=== PATIENT | male | born 1975 | race Caucasian/White ===

== ENCOUNTER 2017-09-10 18:11 | Emergency (ER) | payer OTHER ==
[~2017-09-10] VITALS: Ht 188 cm; Wt 95.5 kg
[~2017-09-10 18:11] MED LIST: ACYCLOVIR400 MG; CIPRO500 MG PO; CIPROFLOXACIN250 MG PO; CYCLOBENZAPRINE10 MG PO; FLOMAX0.4 MG PO; HYDROMORPHONE HC2 MG PO; IBUPROFEN600 MG; IBUPROFEN600 MG PO; IBUPROFEN800 MG PO; METHOCARBAMOL500 MG PO; NAPROXEN500 MG PO; NORCO 5-325 TA1 EACH PO; TORSEMIDE10 MG PO; ZOFRAN ODT4 MG PO; ZOFRAN4 MG PO
== END 2017-09-10 21:27 | disposition home or self-care (01) ==
LOC: ED 18:11
DX: J11.1 Influenza due to unidentified influenza virus with other respiratory manifestations (principal); J02.9 Acute pharyngitis, unspecified; Z87.442 Personal history of urinary calculi; Z98.890 Other specified postprocedural states
CPT/HCPCS: 87502; 96360; 99283; J7120

== ENCOUNTER 2020-11-14 16:17 | Emergency (ER) | payer OTHER ==
[~2020-11-14] VITALS: Ht 188 cm; Wt 95.5 kg
== END 2020-11-14 20:34 | disposition home or self-care (01) ==
LOC: ED 16:17
DX: R41.82 Altered mental status, unspecified (principal)
CPT/HCPCS: 99284

== ENCOUNTER 2022-04-10 10:08 | Emergency (ER) | payer OTHER ==
[~2022-04-10] VITALS: Ht 188 cm; Wt 95.5 kg
[2022-04-10] MEDS ORDERED: PREDNISONE20 MG PO (11:00)
== END 2022-04-10 11:07 | disposition home or self-care (01) ==
LOC: ED 10:08
DX: G51.0 Bell's palsy (principal)
CPT/HCPCS: 99283

== ENCOUNTER 2024-05-10 16:23 | Emergency (ER) | payer OTHER ==
[~2024-05-10] VITALS: Ht 188 cm; Wt 93.9 kg
[~2024-05-10 16:23] MED LIST changes: +PREDNISONE20 MG PO
[2024-05-10] MEDS ORDERED: CYCLOBENZAPRINE5 MG PO (16:50)
[2024-05-10] MEDS ORDERED: CEFDINIR300 MG PO (16:51)
[2024-05-10] MEDS ORDERED: MORPHINE SULFATE 4 MG/ML VIAL IV ONE (19:30)
[2024-05-10] MEDS ORDERED: ondansetron HCL 4 MG/2 ML VIAL IV ONE (19:30)
[2024-05-10 20:31] LABS: BASOPHILS 0.9 % (0-2); EOSINOPHILS 4.4 % (0-6); HEMATOCRIT 36.4 % (35.0-50.0); HEMOGLOBIN 12.5 g/dL (12.0-18.0); LYMPHOCYTES 25.7 % (24-44); MCH 30.1 (27-36); MCHC 34.3 g/dl (30-36); MCV 87.6 fl (81-99); PLATELET COUNT 372 K/uL (140-440); RBC 4.16 M/ul (4.3-5.7); RDW 13.1 (10.5-15.0)
[2024-05-10 20:41] LABS: ALBUMIN 3.1 g/dL (3.4-5.0); ALBUMIN/GLOBULIN RATIO 0.82 (1.1-2.4); ANION GAP 8.9 (7-21); BILIRUBIN, TOTAL 0.3 ng/dL (0.2-1.0); BUN/CREATININE RATIO 9.63 (6.0-28.6); CREATININE, SERUM 0.83 mg/dL (0.70-1.30); MAGNESIUM 1.7 mg/dL (1.8-2.4); POTASSIUM 3.9 mmol/L (3.5-5.1); PROTEIN, TOTAL 6.9 g/dL (6.4-8.2)
[2024-05-10] MEDS ORDERED: ACETAMINOPHEN/CAFFEINE/BUTALB 1 TAB TABLET PO ONE (21:30)
[2024-05-10] MEDS ORDERED: LEVOFLOXACIN500 MG PO (21:37)
[2024-05-10] MEDS ORDERED: BUTALB-ACETAMI1 EAC2 PO (21:39)
[2024-05-10] MEDS ORDERED: methylPREDNISolone 4 MG HOME.PACK PO ONE (21:45)
[2024-05-10 21:52] VITALS: BP 141/103
== END 2024-05-10 22:11 | disposition home or self-care (01) ==
LOC: ED 16:23
PROVIDERS: Family Medicine
DX: J32.8 Other chronic sinusitis (principal); Z79.899 Other long term (current) drug therapy
CPT/HCPCS: 36415; 70450; 70496; 70498; 71045; 80053; 83735; 84484; 85025; 96375; 99284-25; A9270; J2270; J2405; Q9967

== ENCOUNTER 2024-07-18 07:10 | Day surgery (SDC) | payer OTHER ==
[2024-07-13 10:22] VITALS: BP 145/94
[~2024-07-18] VITALS: Ht 188 cm; Wt 90.9 kg
[~2024-07-18 07:10] MED LIST changes: +ADVIL200 MG PO; +AMOXICILLIN500 MG PO; +ASPIRIN EC325 MG PO; +BUTALB-ACETAMI1 EAC2 PO; +CEFAZOLIN SODIUM 2 GM/20 ML SYR IV SCH; +CEFDINIR300 MG PO; +CYCLOBENZAPRINE5 MG PO; +HYDROCODON-ACE1 EA11 PO; +IBLOOD GLUCOSE TEST STRIP 1 EA TEST VI PRN; +LACTATED RINGER'S 1,000 ML IV SCH; +LEVOFLOXACIN500 MG PO; +LIDOCAINE HCL 1% 5 ML SDV INJ ONE; +TYLENOL EXTRA500 MG PO
[2024-07-18 07:20] VITALS: BP 148/92
[2024-07-18] MEDS ORDERED: SLEEP AID25 MG PO (07:23)
[2024-07-18] MEDS ORDERED: LIDOCAINE 1% W/ EPI 1:100,000 20 ML MDV ONE (07:28)
[2024-07-18] MEDS ORDERED: DEXAMETHASONE SOD PHOS 4 MG/ML VIAL ONE (07:39)
[2024-07-18] MEDS ORDERED: SUCCINYLCHOLINE IN 0.9% NACL 200 MG/10 ML SYRINGE ONE (07:39)
[2024-07-18] MEDS ORDERED: LACTATED RINGER'S 1,000 ML IV ONE (07:39)
[2024-07-18] MEDS ORDERED: SUGAMMADEX SODIUM 200 MG/2 ML ML ONE (07:39)
[2024-07-18] MEDS ORDERED: propofoL 200 MG/20 ML VIAL ONE (07:39)
[2024-07-18] MEDS ORDERED: ondansetron HCL 4 MG/2 ML VIAL ONE (07:39)
[2024-07-18] MEDS ORDERED: KETOROLAC TROMETHAMINE 30 MG/ML VIAL ONE (07:39)
[2024-07-18] MEDS ORDERED: METOCLOPRAMIDE HCL 10 MG/2 ML SDV ONE (07:39)
[2024-07-18] MEDS ORDERED: LIDOCAINE HCL 4% 5 ML AMP ONE (07:39)
[2024-07-18] MEDS ORDERED: fentaNYL citrate 100 MCG/2 ML VIAL ONE (07:39)
[2024-07-18] MEDS ORDERED: MIDAZOLAM HCL 2 MG/2 ML VIAL ONE (07:39)
[2024-07-18] MEDS ORDERED: ROCURONIUM BROMIDE 50 MG/5 ML SYR ONE (07:39)
[2024-07-18] MEDS ORDERED: FAMOTIDINE 20 MG/ 2 ML VIAL ONE (07:39)
[2024-07-18] MEDS ORDERED: dexmedeTOMIDine HCl 200 MCG/2 ML VIAL ONE (07:40)
[2024-07-18] MEDS ORDERED: SUDAFED 12-HOU120 MG PO (07:44)
[2024-07-18] MEDS ORDERED: OXYMETAZOLINE HCL 30 ML BTL NAS SCH (08:00)
[2024-07-18] MEDS ORDERED: droPERidol 5 MG/2 ML VIAL IV PRN (08:45)
[2024-07-18] MEDS ORDERED: METOCLOPRAMIDE HCL 10 MG/2 ML SDV IV PRN (08:45)
[2024-07-18] MEDS ORDERED: ondansetron HCL 4 MG/2 ML VIAL IV PRN (08:45)
[2024-07-18] MEDS ORDERED: PROCHLORPERAZINE EDISYLATE 10 MG/2 ML VIAL IV PRN (08:45)
[2024-07-18] MEDS ORDERED: MORPHINE SULFATE 10 MG/ML VIAL IV PRN (08:45)
[2024-07-18] MEDS ORDERED: NALOXONE HCL 0.4 MG SYR IV PRN (08:45)
[2024-07-18] MEDS ORDERED: IBLOOD GLUCOSE TEST STRIP 1 EA TEST VI PRN (08:45)
[2024-07-18] MEDS ORDERED: fentaNYL citrate 50 MCG/ML SDV IV PRN (08:45)
[2024-07-18] MEDS ORDERED: SEVOFLURANE 250 ML BTL INH ONE (08:49)
[2024-07-18] MEDS ORDERED: SEVOFLURANE 250 ML BTL ONE (09:19)
[2024-07-18 10:08] VITALS: BP 134/81
[2024-07-18] MEDS ORDERED: ACETAMINOPHEN 1,000 MG/100 ML VIAL IV ONE (10:30)
[2024-07-18] MEDS ORDERED: HYDROCODONE/ACETA 5/325 TAB PO PRN (10:45)
[2024-07-18 11:02] VITALS: BP 133/86
--- NOTE | 2024-07-18 11:13 | OR ---
[facility] [address] [place], [place] [address] Signed DATE OF OPERATION: 07/18/2024 SURGEON: Santiago Wang MD PREOPERATIVE DIAGNOSIS: Right pansinusitis. POSTOPERATIVE DIAGNOSIS: Right pansinusitis. PROCEDURE: Right roca sinusotomies. ANESTHESIA: General, LMA; Bryson RUTLEDGE PREOP HISTORY: Lev is a 48-year-old man with a severe sinus infection for several months. This has been unresponsive to appropriate medications, antibiotics, and steroids. He has had CAT scans initially several months ago showing right pansinus opacification. This is a CT scan was repeated about a week ago showing continued persistent opacification of all right sinuses sparing the sphenoid. He is taken to the operating for the above-mentioned procedures. OPERATIVE PROCEDURE AND FINDINGS: After informed consent, the patient was taken to the operating room, placed in supine position, where general LMA anesthesia was induced. The patient and procedure were verified. The patient was repositioned. Preop CT was viewed throughout. The patient received preoperative intranasal oxymetazoline, intravenous Ancef. Nasal cavities were inspected with the headlight speculum. Left side was clear. The right side had purulence in the middle meatus, lots of edema. The middle turbinate was medialized. The purulence was filling the middle meatus, it was suctioned clear. The ethmoid, anterior ethmoid air cells, and ethmoid bulla were taken down with the Jorje and lots of polypoid material opened. The ethmoids were followed posteriorly, opened up with polypoid material and purulence, guidance was by the CT, which was reviewed throughout. The middle meatal antrostomy was made with a curved ring curette, purulence filling the maxillary sinus, polypoid debris all removed with curette. The antrostomy was widened with the Jorje. The nasofrontal duct was opened with a curette, purulence obtained and polypoid material removed. The bleeding was prominent, but stopped afterwards. All the involved sinuses appeared to be opened adequately. Packing Electronically Signed By: SANITAGO WANG MD 07/18/24 1113 PATIENT NAME: LEV DRISCOLL OPERATIVE REPORT DATE OF : 75 REPORT #: [id number] PHYSICIAN: SANTIAGO WANG MD PCP: NO PRIMARY CARE PHYSICIAN REPORT IS CONFIDENTIAL AND NOT TO BE RELEASED WITHOUT AUTHORIZATION [facility] [address] [place] [id number] Signed was then placed. A Carrera pack coated with Neosporin in the middle meatus and a trimmed Merocel pack in the nasal cavity. The pharynx was suctioned clear of blood and secretions. The hemostasis was verified. The patient was then awakened, extubated, and transported to the recovery room in good condition. COMPLICATIONS: No complications. BLOOD LOSS: About 100 mL. PACKING: Two pieces of Merocel, right side; none on the left. SPECIMEN: To pathology. DRAINS: No drains. Santiago Wang MD GC/MODL /[id number] Copies: ~ Electronically Signed By: SANTIAGO WANG MD 07/18/24 1113 PATIENT NAME: LEV DRISCOLL OPERATIVE REPORT DATE OF : 75 REPORT #: [id number] PHYSICIAN: SANTIAGO WANG MD PCP: NO PRIMARY CARE PHYSICIAN REPORT IS CONFIDENTIAL AND NOT TO BE RELEASED WITHOUT AUTHORIZATION
--- NOTE | 2024-07-21 10:43 | PATH ---
[facility] [address] [place], [place] [address] Signed SPECIMEN(S): A RIGHT SINUS CONTENTS SPECIMEN SOURCE: A. RIGHT SINUS CONTENTS , CLINICAL HISTORY: Right pansinusitis FINAL PATHOLOGIC DIAGNOSIS: Right sinus contents: - Sinus tissue with marked edema, congestion and chronic inflammation consistent with chronic sinusitis. NA MICROSCOPIC EXAMINATION: Histologic sections of all submitted blocks are examined by light microscopy. These findings, together with the gross examination, support the pathologic diagnosis. GROSS DESCRIPTION: The specimen, labeled and designated "Jed Driscoll, per requisition right sinus contents," is received in formalin and consists of a 2.7 x 2.6 x 2.4 cm aggregate of tabor-brown tissue fragments. The specimen is entirely submitted in cassette A1. AA (under the direct supervision of a pathologist) The Gross Description was prepared using a voice recognition system. The report was reviewed for accuracy; however, sound-alike word errors, addition and/or deletions may occur. If there is any question about this report, please contact Client Services. ADDITIONAL NOTES: Immunohistochemical and/or in situ hybridization studies if performed in this case included appropriate positive controls that reacted as expected. This test was developed and its performance characteristics determined by [facility]. It has not been cleared or approved by the U.S. Food and Drug Administration. The FDA has determined that such clearance or approval is not necessary. This test is used for clinical purposes. It should not be regarded as investigational or for research. [facility] is certified under the Clinical Laboratory Improvement PATIENT NAME: LEV DRISCOLL PATHOLOGY DATE OF : 75 REPORT #: [id number] PHYSICIAN: JADYN ROJAS PCP: NO PRIMARY CARE PHYSICIAN REPORT IS CONFIDENTIAL AND NOT TO BE RELEASED WITHOUT AUTHORIZATION [address] [place], [place] [address] Signed Amendments of 1988 (CLIA) as qualified to perform high complexity clinical laboratory testing. PERFORMING LABORATORY: Technical component was performed by [facility], [address] [place] [address] (CLIA# [id number]). Professional interpretation was performed by [facility], [address] [place] [address] (CLIA#: [id number]). Diagnostician: Peter Christopher MD Pathologist Electronically Signed 07/21/2024 Copies: ~ PATIENT NAME: LEV DRISCOLL PATHOLOGY DATE OF : 75 REPORT #: [id number] PHYSICIAN: JADYN ROJAS PCP: NO PRIMARY CARE PHYSICIAN REPORT IS CONFIDENTIAL AND NOT TO BE RELEASED WITHOUT AUTHORIZATION
== END 2024-07-18 11:55 | disposition home or self-care (01) ==
LOC: DS 07:10
PROVIDERS: ATTEND Otolaryngology
PROC: 09N Ear, Nose, Sinus, Release (ICD-10-PCS; principal; 2024-07-18 09:00)
DX: J32.4 Chronic pansinusitis (principal)
CPT/HCPCS: 00160; 88305; 88311; J0131; J0330; J0690; J1100; J1885; J2250; J2405; J2704; J2765; J3010; J3490; J7121

== ENCOUNTER 2025-03-01 19:05 | Observation (INO) | payer OTHER ==
[~2025-03-01] VITALS: Ht 188 cm; Wt 102.8 kg
[~2025-03-01 19:05] MED LIST changes: -CEFAZOLIN SODIUM 2 GM/20 ML SYR IV SCH; -IBLOOD GLUCOSE TEST STRIP 1 EA TEST VI PRN; -LACTATED RINGER'S 1,000 ML IV SCH; -LIDOCAINE HCL 1% 5 ML SDV INJ ONE; +SEVOFLURANE 250 ML BTL INH ONE; +SLEEP AID25 MG PO; +SUDAFED 12-HOU120 MG PO
[2025-03-01] MEDS ORDERED: FAMOTIDINE 20 MG/ 2 ML VIAL IV ONE (19:45)
[2025-03-01] MEDS ORDERED: metroNIDAZOLE/SODIUM CHLORIDE 500 MG/100 ML PIGGYBACK IV ONE ×2 (19:45→23:00)
[2025-03-01] MEDS ORDERED: CEFAZOLIN SODIUM 2 GM/20 ML SYR IV ONE (19:45)
[2025-03-01] MEDS ORDERED: LACTATED RINGER'S 1,000 ML IV ONE (19:45)
[2025-03-01] MEDS ORDERED: MORPHINE SULFATE 10 MG/ML VIAL IV PRN (20:45)
[2025-03-01] MEDS ORDERED: ondansetron HCL 4 MG/2 ML VIAL IV PRN ×2 (20:45→22:00)
[2025-03-01] MEDS ORDERED: LACTATED RINGER'S 1,000 ML IV SCH (20:45)
[2025-03-01] MEDS ORDERED: LIDOCAINE HCL 2% 5 ML SDV ONE ×2 (20:59→21:05)
[2025-03-01] MEDS ORDERED: ROCURONIUM BROMIDE 50 MG/5 ML SYR ONE (20:59)
[2025-03-01] MEDS ORDERED: fentaNYL citrate 100 MCG/2 ML VIAL ONE (20:59)
[2025-03-01] MEDS ORDERED: KETAMINE in NS 50 MG/5 ML SYR ONE (20:59)
[2025-03-01] MEDS ORDERED: DEXAMETHASONE SOD PHOS 4 MG/ML VIAL ONE (21:00)
[2025-03-01] MEDS ORDERED: ondansetron HCL 4 MG/2 ML VIAL ONE (21:00)
[2025-03-01] MEDS ORDERED: FAMOTIDINE 20 MG/ 2 ML VIAL IV SCH (21:00)
[2025-03-01] MEDS ORDERED: propofoL 200 MG/20 ML VIAL ONE (21:00)
[2025-03-01] MEDS ORDERED: ACETAMINOPHEN 1,000 MG/100 ML VIAL ONE (21:00)
[2025-03-01] MEDS ORDERED: MAGNESIUM SULFATE 1 GM/2 ML VIAL ONE (21:05)
[2025-03-01] MEDS ORDERED: KETOROLAC TROMETHAMINE 30 MG/ML VIAL IV PRN (22:00)
[2025-03-01] MEDS ORDERED: IBLOOD GLUCOSE TEST STRIP 1 EA TEST VI PRN (22:00)
[2025-03-01] MEDS ORDERED: CEFAZOLIN SODIUM 2 GM/20 ML SYR IV SCH (22:00)
[2025-03-01] MEDS ORDERED: HYDROmorphone HCL 1 MG/ML SYR IV PRN (22:00)
[2025-03-01] MEDS ORDERED: fentaNYL citrate 50 MCG/ML SDV IV PRN (22:00)
[2025-03-01] MEDS ORDERED: metroNIDAZOLE/SODIUM CHLORIDE 500 MG/100 ML PIGGYBACK IV SCH (22:00)
[2025-03-01] MEDS ORDERED: NALOXONE HCL 0.4 MG SYR IV PRN (22:00)
[2025-03-01] MEDS ORDERED: ePHEDrine sulfate 50 MG/ML AMP ONE (22:01)
[2025-03-01] MEDS ORDERED: SUGAMMADEX SODIUM 200 MG/2 ML ML ONE (22:06)
[2025-03-01] MEDS ORDERED: MORPHINE SULFATE 4 MG/ML VIAL IV PRN (22:30)
[2025-03-01] MEDS ORDERED: FLUCONAZOLE 200 MG TAB PO SCH (22:30)
--- NOTE | 2025-03-01 23:40 | NUR ---
PATIENT TO THE FLOOR BY PRESS TENDER SMOKE SIGNAL. POTTERY MACHINE OPERATOR IN ROOM TO COMPLETE ADMISSION. VS AND BED WEIGHT OBTAINED AND RECORDED. CPOX IN PLACE. SCDs IN PLACE. IV FLUIDS INFUSING PER ORDER. PATIENT EDUCATED TO ROOM AND CALL LIGHT.
[2025-03-01] MEDS ORDERED: ACETAMINOPHEN 500 MG TAB PO PRN (23:45)
[2025-03-01] MEDS ORDERED: IBUPROFEN 600 MG TAB PO PRN (23:45)
[2025-03-01] MEDS ORDERED: HYDROCODONE/ACETA 5/325 TAB PO PRN (23:45)
[2025-03-01 23:48] VITALS: BP 149/97
[2025-03-02] VITALS (12 sets, daily range): BP systolic 138–157; BP diastolic 80–96
--- NOTE | 2025-03-02 00:06 | NUR ---
03/02/25 0006 Haydee Youngblood 2222- PT ARRIVES TO PACU FROM OR. PT EYES ARE CLOSED AND FACIAL GRMACING IS NOTED. PT HAS A NATURAL AIRWAY AND IS ABLE TO FOLLOW COMMANDS. MONITORS PUT IN PLACE. LR INFUSING. SURGICAL SITES SHOW A SMALL AMOUNT OF RED DRAINAGE FROM ALL THREE SURGICAL LAP SITES. BEDSIDE REPORT RECIEVED FROM JAKOB WISE. 2234- PT REPORTS THAT HE IS "HAVING PAIN" AND TAPPING ON HIS ABDOMEN. PT IS GIVEN A PILLOW TO USE FOR SPLINTING. 2229- TORADOL GIVEN, SEE EMAR. 2233- PT EYES CLOSED TIGHTLY AND FISTS CLOSING AND PT REPORTS HE IS HAVING LOTS OF PAIN. FENTANYL GIVEN, SEE EMAR. 2237- PT REPORTS THAT PAIN MEDICATION HAS NOT DECREASED HIS PAIN. FENTANYL GIVEN, SEE EMAR. 2241- PT REPORTS 10/10 PAIN. PT EDUCATED ABOUT SPLINTING WHEN HE ASKS ABOUT BEING ABLE TO COUGH. SOME TEARS NOTED. 2243- DILAUDID GIVEN, SEE EMAR. PT CONTINUES TO HAVE FACIAL GRIMACING. PT PATTING HIS ABDOMEN OFF AND ON, AND POINTING TO THE SURGICAL SITES WHEN ASKED WHERE IT HURTS. 10/10 PAIN REPORTED. 2256- PT REPORTS PAIN IS STILL 10/10. DILAUDID GIVEN, SEE EMAR. PT REPOSITIONED, BUT REPORTS THAT PAIN IS STILL THERE. 2300- PT FACIAL GRIMACING LESSENS AND PT SHOWS LESS SIGNS OF APPARENT DISTRESS. PT REPORTS THAT PAIN IS A 10/10. 2305- ANESTHESIA CALLED. NIKKO RECOMMENDS 5O MORE OF FENTANYL. 2311- FENTANYL GIVEN, SEE EMAR. 2315- PT REPORTS THAT PAIN IS A LITTLE BETTER AND THAT HIS PAIN IS AT A 8-9/10. PT REPORTS NEEDING TO VOID. URINAL PROVIDED AND CURTAINS DRAWN FOR PRIVACY, PT IS UNABLE TO VOID AT THIS TIME SITTING UP IN BED. PT IS REPOSITIONED AND SITTING UP WITH LEGS BENT, AND PT REPORTS HE THINKS IT FEELS BETTER. 2326- PT REPORTS THAT PAIN CONTINUES TO BE AT THAT 8-9/10. PT VSS. 2345- PT IS TRANSFERED TO MED SURG ROOM 109 AT THIS TIME. BED LOCKED AND PLUGGED IN. BEDSIDE REPORT GIVEN TO JAKOB SAN. QUESTIONS AND CONCERNS ANSWERED. PT FAMILY AT BEDSIDE. CARE TURNED OVER AT THIS TIME.
--- NOTE | 2025-03-02 00:15 | NUR ---
THIS RN IN ROOM TO COMPLETE ASSESSMENT. x3 LAP SITES C/D/I WITH MINIMAL DRAINAGE. PATIENT REPORTS 9/10 ABD PAIN. PRN PAIN MEDICATION ADMINISTERED. PATIENT DENIES FURTHER NEEDS AT THIS TIME. CALL LIGHT IN REACH.
--- NOTE | 2025-03-02 00:49 | NUR ---
calmer, on room air, post op CPOX on at bedside, SCDS on, IVf infusing w/o problems. Sitting up in bed, hob elevated. splinter pillow over abd in place. no c/o pain, tolerating liquids well, no c/o n/v at this time. Used urinal, voided large amounts of urine. Family visiting.
--- NOTE | 2025-03-02 01:51 | NUR ---
PATIENT RESTING IN BED. APPEARS COMFORTABLE. VS OBTAINED AND RECORDED. RESPIRATIONS EVEN AND UNLABORED. CALL LIGHT IN REACH.
--- NOTE | 2025-03-02 05:36 | NUR ---
SWITCH COUPLER OBTAINED VITALS AND I&O. PT REQUESTING PAIN MEDS. RN NOTIFED. PT STATES NO FURTHER NEEDS AT THIS TIME. CALL LIGHT WITHIN REACH.
--- NOTE | 2025-03-02 05:56 | NUR ---
PATIENT RESTING IN BED WATCHING TV. DENIES NEEDS AT THIS TIME. ASSESSMENT COMPLETE. LAP SITES C/D/I. NO FURTHER NEEDS. CALL LIGHT IN REACH.
[2025-03-02] MEDS ORDERED: CEFAZOLIN SODIUM 2 GM/20 ML SYR IV SCH (06:00)
[2025-03-02] MEDS ORDERED: metroNIDAZOLE/SODIUM CHLORIDE 500 MG/100 ML PIGGYBACK IV SCH (06:00)
--- NOTE | 2025-03-02 06:07 | NUR ---
SCHEDULED IV ABX INFUSING PER ORDER. NO FURTHER NEEDS. CALL LIGHT IN REACH.
--- NOTE | 2025-03-02 07:20 | NUR ---
RECIEVED REPORT FROM JAKOB BARONE. PT AWAKE IN BED, STATES PAIN IS 7/10, STATES HE WOULD LIKE NEXT AVAILABLE PRN PAIN MEDICATION. PT STATES NO OTHER CURRENT NEEDS AT THIS TIME, CALL LIGHT WITHIN REACH.
--- NOTE | 2025-03-02 07:29 | NUR ---
UR CLINICAL REVIEW: ELI, MEETS OBS FOR APPENDICITIS SURGICAL INTERVENTION COMPLETED 03/01/25 AT NIGHT. MEETS DC CRITERIA THIS AM. [facility] OBS 03/01/25 @ 2046 ORDER MATCHES REG NO AUTH REQUIRED PER MEDICAID RULES FOR OBS PLAN TO DC TO HOME TODAY 03/03/25
--- NOTE | 2025-03-02 09:13 | NUR ---
Great visit with Mathieu. Zoilayed together and had a good conversation.
[2025-03-02] MEDS ORDERED: IBUPROFEN600 MG PO (09:16)
[2025-03-02] MEDS ORDERED: HYDROCODON-ACE1 EA10 PO (09:16)
[2025-03-02] MEDS ORDERED: ACETAMINOPHEN500 MG PO (09:16)
[2025-03-02] MEDS ORDERED: FLUCONAZOLE200 MG PO (09:16)
--- NOTE | 2025-03-02 09:19 | NUR ---
PT'S DOCTOR CAME IN - DISCUSSED PT BEING DISCHARGE. PT IN BED, IN ROOM. CALL LIGHT WITHIN REACH, PT HAS FRESH ICE WATER.
--- NOTE | 2025-03-02 09:20 | OR ---
[facility] [address] [place], [place] [address] Signed DATE OF OPERATION: 03/01/2025 SURGEON: Abdias Helms MD PREOPERATIVE DIAGNOSIS: Acute appendicitis. POSTOPERATIVE DIAGNOSES: 1. Acute appendicitis. 2. Crural tinea and umbilical tinea. PROCEDURE: Laparoscopic appendectomy. ANESTHESIA: General endotracheal, Chacorta Carrillo, CANDY POLISHER and local 10 mL of 0.25% Marcaine with epinephrine. INDICATION: This 49-year-old white man has no designated primary care provider, though he is on the [employer]. He presented to Urgent Care today with right lower abdominal pain. A CT scan was performed as an outpatient confirming acute appendicitis. He was directed to the emergency room, where he was evaluated by Dr. Grimes. He was found to have a normal white count and chem profile, and CT scan findings were firm to show appendicitis. Clinical examination did show tenderness in the right lower quadrant. The patient has been fluid resuscitated, given intravenous antibiotic Ancef and Flagyl and recommended to undergo laparoscopic appendectomy, possible open procedure. We discussed the risk of bleeding, infection, need for open surgery, failure of diagnosis, missed diagnosis, and need for other indicated procedures. Additionally, discussed nonoperative management for this type problem, which I did not recommend. Understanding all these, he wished to proceed in agreement with his . FINDINGS: Noted previously was umbilical tinea, dermatitis as well as tinea cruris. Avoidance of these areas for trocar placement was undertaken of course. The appendix indeed was inflamed acutely, but not perforated. Terminal ileum was normal. The gallbladder showed mild chronic inflammation. The liver was normal. Appendectomy was performed without problem. DESCRIPTION OF PROCEDURE: Electronically Signed By: ABDIAS HELMS MD 03/02/25 0920 PATIENT NAME: LVE DRISCOLL OPERATIVE REPORT DATE OF : 75 REPORT #: [id number] PHYSICIAN: ABDIAS HELMS MD PCP: BRIAN ALICEA REPORT IS CONFIDENTIAL AND NOT TO BE RELEASED WITHOUT AUTHORIZATION [facility] [address] [place], [place] [address] Signed The patient was brought to the operating room, given a general endotracheal anesthetic. Preoperative antibiotic Ancef and Flagyl had been given. Sequential compression device stockings were used. The abdomen was clipped and noted to show umbilical tinea infection as well as tinea cruris bilaterally. This was of no concern particularly at this point. The abdomen was prepared with chlorhexidine solution and draped sterilely. An infraumbilical incision was made outside the area of the tineal infection. Using an open Elif cannula technique, pneumoperitoneum was achieved to a level of 14 mmHg of carbon dioxide gas. Intra-abdominal inspection showed no sign of ascites or carcinomatosis. At that point, the appendix was obscured from view. An epigastric port was placed under direct visualization allowing for placement of the camera to that site. In right lower abdomen, 5 mm incision was made and a port placed and using 2 hand manipulation, the cecum identified and small bowel loops retracted out of the way. The table was placed in the left side down position. The cecum was elevated and the anterior tinea traced to the base of the appendix. The appendix was manipulated into view after noting a normal ileum. The appendix was quite markedly dilated and inflamed and no doubt with acute appendicitis. With various manipulations, a window was created between the appendix and the mesoappendix and the base of the appendix was well skeletonized. Plan for application of the Endo JENI stapling device with a vascular load to the base the appendix, excising it totally. The mesentery was well isolated and a similar vascular load was applied across it without problem. The appendix was placed in the endobag and extracted through the infraumbilical port site without problem. Irrigation was undertaken at the staple line showing no significant bleeding. The excess irrigation fluid was suctioned free. The trocars removed under direct visualization showing no sign of bleeding. Infraumbilical fascial incision was reapproximated with interrupted 0 Vicryl suture. 10 mL of 0.25% Marcaine with epinephrine injected locally. The skin was closed with interrupted 3-0 Vicryl. Steri-Strips were applied. He was ultimately extubated and transferred to the recovery room in good condition. MD AKIN Moncada/MODL /[id number] cc: Dr. Juan M Grimes Electronically Signed By: ABDIAS HELMS MD 03/02/25 0920 PATIENT NAME: LEV DRISCOLL OPERATIVE REPORT DATE OF : 75 REPORT #: [id number] PHYSICIAN: ABDIAS HELMS MD PCP: BRIAN ALICEA REPORT IS CONFIDENTIAL AND NOT TO BE RELEASED WITHOUT AUTHORIZATION [address] [address] Signed Copies: ~ Electronically Signed By: ABDIAS HELMS MD 03/02/25 0920 PATIENT NAME: LEV DRISCOLL KETAN OPERATIVE REPORT DATE OF : 75 REPORT #: [id number] PHYSICIAN: ABDIAS HELMS MD PCP: BRIAN ALICEA REPORT IS CONFIDENTIAL AND NOT TO BE RELEASED WITHOUT AUTHORIZATION
--- NOTE | 2025-03-02 09:20 | HP ---
[facility] [address] [place], [place] [address] Signed ADMISSION DATE: 03/01/2025 REASON FOR ADMISSION: Acute appendicitis. HISTORY OF PRESENT ILLNESS: This 49-year-old white man is known to me from the past having undergone treatment of a [id number] more than 10 years ago. He is accompanied by his . Yesterday, he began having lower abdominal pain with some stabbing pain upon urination, which was transient and limited. Today, he began having worsening lower abdominal pain, mostly now in the right lower abdomen. He had no associated nausea or vomiting. He was seen in the Urgent Care Clinic where lab studies were obtained showing a white count of only 6.0, hemoglobin 13.9, platelets 296,000, electrolytes normal, creatinine 0.74, with normal liver enzymes. A CT scan that was performed through the [facility] confirmed findings consistent with early acute appendicitis. The patient last ate anything at all at 4:30, actually drank water. He has not eaten later in the day. PAST MEDICAL HISTORY: Notable for fistula surgery as previously noted. He has had no problems since that time. MEDICATIONS: The patient has no prescribed medicines on a routine basis and does take Motrin for headaches and other similar problems. SOCIAL HISTORY: The patient is . He is on the [employer]. 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 REVIEW OF SYSTEMS: Denies any shortness of breath or chest pain. He has had no dysphagia or dysuria. Denies any blood per rectum or hematemesis. PHYSICAL EXAMINATION: GENERAL: Tall white man who looks to be in minimal distress. VITAL SIGNS: His BMI is 27.3, height is 6 feet 2 inches, weight 96 kg. HEENT: Trachea is midline. Mucous membranes are reasonably moist. An IV is running in Electronically Signed By: ABDIAS HELMS MD 03/02/25 0920 PATIENT NAME: LEV DRISCOLL HISTORY AND PHYSICAL DATE OF : 75 REPORT #: [id number] PHYSICIAN: ABDIAS HELMS MD PCP: BRIAN ALICEA REPORT IS CONFIDENTIAL AND NOT TO BE RELEASED WITHOUT AUTHORIZATION [facility] [address] [place], [place] [address] Signed the arm. CHEST: Shows normal respiratory excursion. Pulses regular. ABDOMEN: Scaphoid and nondistended. Rovsing sign is negative. He has mild tenderness in the right lower quadrant. On deep palpation, significant tenderness. EXTREMITIES: Show no clubbing, cyanosis, or edema. LAB STUDIES: As previously noted. ASSESSMENT: His findings are clinically consistent with acute appendicitis, and a CT scan is confirmatory of that. There is no evidence of perforation or fluid collection or abscess. My own review of the study confirms these findings. His liver and kidneys appear normal as does the gallbladder. Bladder was moderately full of urine on examination. Small bowel loops appeared to be normal. It appears to be fecalith within the appendix. I am not entirely certain of that. The patient has acute appendicitis. I discussed the pathophysiology of the problem with them using the dry board and marker. Discussed both operative and nonoperative approaches to the problem. I would recommend an operative approach as it is durable, safe and effective. The risks of a laparoscopic appendectomy or even an open appendectomy were reviewed in detail, which include but are not limited to bleeding, infection, need for open procedure, need for other indicated procedures and so on. Understanding this, he and his wished to proceed. We will set this up for tonight. MD AKIN Moncada/MODL /[id number] cc: Juan M Grimes MD [facility] Electronically Signed By: ABDIAS HELMS MD 03/02/25 0920 PATIENT NAME: LEV DRISCOLL KETAN HISTORY AND PHYSICAL DATE OF : 75 REPORT #: [id number] PHYSICIAN: ABDIAS HELMS MD PCP: BRIAN ALICEA REPORT IS CONFIDENTIAL AND NOT TO BE RELEASED WITHOUT AUTHORIZATION [facility] [address] [facility] [place] [address] Signed Copies: ~ Electronically Signed By: ABDIAS HELMS MD 03/02/25 0920 PATIENT NAME: LEV DRISCOLL HISTORY AND PHYSICAL DATE OF : 75 REPORT #: [id number] PHYSICIAN: ABDIAS HELMS MD PCP: BRIAN ALICEA REPORT IS CONFIDENTIAL AND NOT TO BE RELEASED WITHOUT AUTHORIZATION
--- NOTE | 2025-03-02 09:49 | NUR ---
MED REC COMPLETE
--- NOTE | 2025-03-02 11:10 | NUR ---
PT DRESSES SELF IN OWN CLOTHES, IV REMOVED WNL. DC PACKET AND EDUCATION GIVEN TO PT AND , PT AND VERBALIZE UNDERSTANDING, STATE ALL QUESTIONS HAVE BEEN ANSWERED. VSS. PT AMBULATES TO WHEELCHAIR INDEPENDENTLY. PT WHEELED TO FRONT OF BUILDING BY NURSING PERSONEL.
--- NOTE | 2025-03-04 12:11 | EKG ---
[facility] [address] [facility] [place], [place] [address] Signed Sinus rhythm with 1st degree AV block Otherwise normal ECG Confirmed by Brett Canchola DO ([id number]) on 03/04/2025 12:11:06 PM Electronically Signed By: BRETT CANCHOLA DO 03/04/25 1211 PATIENT NAME: LEV DRISCOLL Electrocardiogram DATE OF : 75 PHYSICIAN: BRETT CANCHOLA DO REPORT #: [id number] REPORT IS CONFIDENTIAL AND NOT TO BE RELEASED WITHOUT AUTHORIZATION
--- NOTE | 2025-03-06 12:04 | PATH ---
[facility] [address] [place], [place] [address] Signed SPECIMEN(S): A APPENDIX SPECIMEN SOURCE: A. APPENDIX CLINICAL HISTORY: Acute appendicitis FINAL PATHOLOGIC DIAGNOSIS: Appendix, appendectomy: - Acute appendicitis with periappendicitis and serositis. - Focal periappendiceal soft tissue necrosis and calcification. - Focal mucosal necrosis. - Negative for atypical features. JVR:vilma MICROSCOPIC EXAMINATION: Histologic sections of all submitted blocks are examined by light microscopy. These findings, together with the gross examination, support the pathologic diagnosis. GROSS DESCRIPTION: The specimen, labeled and designated "Stefan, appendix," is received in formalin and consists of Specimen: Appendix with mesoappendix. Dimensions: 9.5 x 3.0 x 2.5 cm. Serosa: Red-brown to pink-tabor. Defect: Not grossly identified. Inking: Staple line is inked Blue. Mucosa: [place]-tabor to red-brown. Fecalith: Not grossly identified. Additional: A yellow-orange well encapsulated chalky/soft area at the tip (1.5 x 0.8 x 0.7 cm) that is approximately 7.5 cm from the appendiceal margin. The serosa surrounding the area is inked black, and the tip is bisected and the area is submitted entirely. Elevated Work Platform Operator sections are submitted in (A1-A2). VB (under the direct supervision of a pathologist) The Gross Description was prepared using a voice recognition system. The report was reviewed for accuracy; however, sound-alike word errors, addition and/or deletions may occur. If there is any question about this report, please contact Client Services. PATIENT NAME: LEV DRISCOLL PATHOLOGY DATE OF : 75 REPORT #: [id number] PHYSICIAN: JADYN ROJAS PCP: BRIAN ALICEA REPORT IS CONFIDENTIAL AND NOT TO BE RELEASED WITHOUT AUTHORIZATION [facility] [address] [place], [place] [address] Signed PERFORMING LABORATORY: Technical component was performed by [facility], [address] [place] [address] (CLIA# [id number]). Professional interpretation was performed by [facility], [address] [place] [id number] (CLIA#: [id number]). Diagnostician: Gerald Ramirez MD Pathologist Electronically Signed 03/06/2025 Copies: ~ PATIENT NAME: LEV DRISCOLL PATHOLOGY DATE OF : 75 REPORT #: [id number] PHYSICIAN: JADYN ROJAS PCP: BRIAN ALICEA REPORT IS CONFIDENTIAL AND NOT TO BE RELEASED WITHOUT AUTHORIZATION
== END 2025-03-02 11:05 | disposition home or self-care (01) ==
LOC: ED 19:05 → MS 19:07
PROVIDERS: ADMIT Surgery; ATTEND Surgery
PROC: 0DTJ4ZZ Resection of Appendix, Percutaneous Endoscopic Approach (ICD-10-PCS; principal; 2025-03-01 21:30)
DX: K35.31 Acute appendicitis with localized peritonitis and gangrene, without perforation (principal); B35.6 Tinea cruris; B35.8 Other dermatophytoses; K81.1 Chronic cholecystitis; I44.0 Atrioventricular block, first degree
CPT/HCPCS: 00840; 88304; 93005; 93010; 94762; 96365; 96375; 96376; 99284-25; A9270; G0378; J0131; J0690; J1100; J1171; J1885; J2003; J2270; J2405; J2704; J3010; J3475; J3490; J7121